=== PATIENT | female | born 1950 | race Caucasian/White ===

== ENCOUNTER 2017-05-09 08:13 | Day surgery (SDC) | payer OTHER ==
[~2017-05-09] VITALS: Ht 144.8 cm; Wt 49.6 kg
[2017-05-09] MEDS ORDERED: NO MEDS (09:05)
[2017-05-09 09:10] VITALS: Ht 144.8 cm; Wt 49.6 kg
[2017-05-09 09:46] VITALS: BP 110/64; PULSE 73; RESP 17
--- NOTE | 2017-05-09 10:22 | OPPN ---
Date/Time of Note Date/Time of Note DATE: 05/09/17 TIME: 10:21 Operative Report Preoperative Diagnosis Screening Postoperative Diagnosis Internal hemorrhoids Operation/Procedure Performed Colonoscopy Provider: ADRIANO LOPEZ MD Anesthesia Type: moderate sedation Estimated blood loss: none Transfusion Required: no Specimen: none Grafts/Implants: none Complications: no ADRIANO LOPEZ MD May 09, 2017 10:22
[2017-05-09] MEDS ORDERED: MIDAZOLAM 1 MG/ML 2 ML INJ ONE (10:26)
[2017-05-09] MEDS ORDERED: FENTAnyl 50 MCG/ML VIAL ONE (10:26)
[2017-05-09 10:51] VITALS: PULSE 50; RESP 14
--- NOTE | 2017-05-09 11:12 | GILP ---
DATE OF PROCEDURE: 05/09/2017 PROCEDURE PERFORMED: Colonoscopy. SURGEON: Ronny Dejesus MD PREOPERATIVE DIAGNOSIS: Screening colonoscopy. POSTOPERATIVE DIAGNOSES: 1. Colonoscopy all the way to the cecum. 2. Internal hemorrhoids. 3. No colon neoplasm was identified. INDICATIONS FOR PROCEDURE: Ms. Sofia Villegas is a 67-year-old female patient who was scheduled for screening colonoscopy. The procedure and possible complications were well explained to the patient. The patient understood and consented to the procedure. DESCRIPTION OF PROCEDURE: Under influence of fentanyl and Versed, the colonoscope was carefully introduced into the rectum. Under direct vision, it was advanced all the way to the cecum. FINDINGS: The patient had internal hemorrhoids. No colon neoplasm was identified. She tolerated the procedure very well. There was no complication from the procedure. At the end of procedure, she was awake with stable vital signs. She was discharged home in the care of her family. IMPRESSION: 1. Colonoscopy all the way to the cecum. 2. Internal hemorrhoids. 3. No colon neoplasm was identified. PLAN: Next screening colonoscopy in 10 years. Dictated By: MD TONY Hays/alireza/ketan /Document#: [id number]
== END 2017-05-09 11:42 | disposition home or self-care (01) ==
LOC: GIL 08:13
PROVIDERS: ATTEND Internal Medicine Gastroenterology
DX: Z12.11 Encounter for screening for malignant neoplasm of colon (principal); K64.8 Other hemorrhoids
CPT/HCPCS: 45378; J2250; J3010